=== PATIENT | male | born 1980 | race Caucasian/White ===

== ENCOUNTER 2018-08-20 02:33 | Emergency (ER) | payer SELFPAY ==
[2018-08-20 03:18] VITALS: BP 143/88; PULSE 89; TEMP 98.3; BMI 30.4
[2018-08-20] MEDS ORDERED: KETOROLAC TROMETHAMINE 30 MG/1 ML VIAL IVPUSH ONE (03:26)
[2018-08-20] MEDS ORDERED: SODIUM CHLORIDE 1,000 ML IV STA (03:26)
[2018-08-20] MEDS ORDERED: ONDANSETRON 4 MG/2 ML VIAL IVPUSH ONE (03:26)
[2018-08-20] MEDS ORDERED: ONDANSETRON 4 MG/2 ML VIAL ONE (03:38)
[2018-08-20] MEDS ORDERED: KETOROLAC TROMETHAMINE 30 MG/1 ML VIAL ONE (03:38)
[2018-08-20 03:59] LABS: EPI CELLS 0.3 /HPF (0-5/HPF); HYALINE CASTS 1 /lpf (0-8); URINE APPEARANCE CLEAR; URINE BACTERIA 6.6 /hpf (NEGATIVE); URINE BILIRUBIN NEGATIVE (NEGATIVE); URINE COLOR YELLOW; URINE GLUCOSE (UA) NEGATIVE (NEGATIVE); URINE KETONE TRACE (NEGATIVE); URINE LEUK ESTERASE NEGATIVE (NEGATIVE); URINE NITRITE NEGATIVE (NEGATIVE); URINE PROTEIN NEGATIVE (NEGATIVE); URINE RBC 43 /hpf (0-4); URINE WBC 2 /hpf (0-5)
--- NOTE | 2018-08-20 04:08 | PDOC ---
History of Present Illness - General Chief Complaint: Pain, Acute Stated Complaint: KIDNEY STONE Time Seen by Provider: 08/20/18 03:09 History Source: Patient Exam Limitations: No Limitations - History of Present Illness Travel History: No Initial Comments: 08/20/18 03:26 HISTORY OF PRESENT ILLNESS: 37-year-old male with vague right side pain starting at approximately 5:00 this evening which turned to a sudden onset sharp feeling in his right flank radiating to his right groin starting at approximately 11:00 this evening. Patient does have a history of renal colic requiring stent placement patient states the pain is consistent with his previous renal colic. Patient reports feeling slightly nauseous but has not vomited. He reports urinary hesitancy but denies any urinary frequency or dysuria. He denies fevers or chills. No recent travel or sick contacts. PAST MEDICAL HISTORY: see HPI SURGICAL HISTORY: Denies ALLERGIES: No known drug allergies REVIEW OF SYSTEMS General/Constitutional: Denies fever or chills. Denies weakness, weight change. HEENT: Denies change in vision. Denies ear pain or discharge. Denies sore throat. Cardiovascular: Denies chest pain or shortness of breath. Respiratory: Denies cough, wheezing, or hemoptysis. Gastrointestinal: Denies nausea, vomiting, diarrhea or constipation. Denies rectal bleeding. Genitourinary: see HPI Musculoskeletal: Denies joint or muscle swelling or pain. Denies neck or back pain. Skin and breasts: Denies rash or easy bruising. Neurologic: Denies headache, vertigo, loss of consciousness, or loss of sensation. Psychiatric: Denies depression or anxiety. Endocrine: Denies increased thirst. Denies abnormal weight change. Hematologic/Lymphatic: Denies anemia, easy bleeding, or history of blood clots. Allergic/Immunologic: Denies hives or skin allergy. Denies latex allergy. PHYSICAL EXAM General Appearance: Well-appearing, appropriately dressed. No apparent distress , no intoxication. Respiratory/Chest: Lungs CTAB. No shortness of breath, chest tenderness, respiratory distress, accessory muscle use. No crackles, rales, rhonchi, stridor , wheezing, dullness Cardiovascular: RRR. S1, S2. No JVD, murmur, bradycardia, tachycardia. Gastrointestinal/Abdominal: Normal bowel sounds. Abdomen soft, non-distended. No tenderness or rebound tenderness. No organomegaly, pulsatile mass, guarding, hernia, hepatomegaly, splenomegaly. Musculoskeletal/Extremities: Normal inspection. FROM of all extremities, normal capillary refill. Pelvis Stable. Right CVA tenderness. No tenderness to extremities, pedal edema, swelling, erythema or deformity. Integumentary: Appropriate color, dry, warm. No cyanosis, erythema, jaundice or rash Neurologic: client services associate II-XII intact. Fully oriented, alert. Appropriate mood/affect. Motor strength 5/5. No appreciable EOM palsy, facial droop or sensory deficit. 08/20/18 04:24 Past History - Past Medical History Allergies/Adverse Reactions: Allergies Allergy/AdvReac Type Severity Reaction Status Date / Time No Known Allergies Allergy Verified 08/20/18 03:04 Home Medications: Ambulatory Orders Tamsulosin HCl [Flomax] 0.4 mg PO DAILY #4 capsule 08/20/18 - Suicide/Smoking/Psychosocial Hx Smoking History: Current every day smoker Number of Cigarettes Smoked Daily: 10 Information on smoking cessation initiated: No Hx Alcohol Use: No Drug/Substance Use Hx: No *Physical Exam - Vital Signs Last Vital Signs Temp Pulse Resp BP Pulse Ox 98.3 F 89 20 143/88 98 08/20/18 02:45 08/20/18 02:45 08/20/18 02:45 08/20/18 02:45 08/20/18 02:45 ED Treatment Course - LABORATORY CBC & Chemistry Diagram: 08/20/18 03:58 08/20/18 03:58 Medical Decision Making - Medical Decision Making 08/20/18 04:24 A/P: 37-year-old male with right flank pain radiating to right groin starting this approximately 5 hours ago History of renal colic Stories consistent with recurrent renal colic Labs line urine including culture Toradol 30 mg IV Normal saline 1 L Zofran 4 mg IV now Spiral CT of the abdomen Reassess 08/20/18 05:01 CT scan is read by imaging building performance consultant: There is a 4 mm calculus in the right ureter causing moderate hydronephrosis and hydroureter. No additional stones are findings are seen. Heterogeneously fatty liver. CBC is unremarkable Chemistry notable for BUN-19.6. GFR 95. Urinalysis reveals 2+ blood with 43 negative nitrates, negative leuk esterase, 2 WBCs high-power field. As there is no sign of infection I will discharge the patient home to follow-up with urology as an outpatient. We have a prescription for Flomax to be taken the patient to follow-up with urology. Patient is in agreement with the current plan was satisfied with the care received today. *DC/Admit/Observation/Transfer Diagnosis at time of Disposition: Renal calculus, right - Discharge Dispostion Disposition: HOME Condition at time of disposition: Fair Decision to Admit order: No - Prescriptions Prescriptions: Tamsulosin HCl [Flomax] 0.4 mg PO DAILY #4 capsule - Referrals Referrals: Gerson Reinoso MD [Staff Physician] - - Patient Instructions Additional Instructions: Take Tylenol and Motrin for pain. Follow manufacture's instructions for appropriate dosage. It is safe to take these medications together. Take Flomax or 0.4 mg every day until evaluated by urology. You have been given a referral for a urologist. Call to schedule an appointment for reevaluation. Return to the emergency department for any new or worsening symptoms. Thank you very much for choosing us to provide your emergent health care needs. - Post Discharge Activity
[2018-08-20 04:24] LABS: BASO % 0.4 % (0-2.0); EOS % 0.8 % (0-4.5); HEMATOCRIT 44.5 % (35.4-49); HEMOGLOBIN 15.1 GM/dL (11.7-16.9); LYMPH % 25.4 % (8-40); MCH 32.3 pg (25.7-33.7); MCHC 33.8 g/dl (32.0-35.9); MEAN CELL VOLUME 95.6 fl (80-96); MEAN PLT VOLUME 9.3 fl (7.5-11.1); MONO % 4.3 % (3.8-10.2); NEUT % 69.1 % (42.8-82.8); PLATELET COUNT 208 K/MM3 (134-434); RBC 4.66 M/mm3 (4.00-5.60); RDW 13.3 % (11.9-15.9); WHITE BLOOD COUNT 7.5 K/mm3 (4.0-10.0)
[2018-08-20 04:52] LABS: ALBUMIN 4.1 g/dl (3.4-5.0); BILIRUBIN,TOTAL 0.3 mg/dL (0.2-1); BLOOD UREA NITROGEN 19.6 mg/dL (7-18); CALCIUM 9.1 mg/dL (8.5-10.1); POTASSIUM 4.6 mmol/L (3.5-5.1); TOT PROT 7.8 g/dl (6.4-8.2)
[2018-08-20] MEDS ORDERED: TAMSULOSIN HCL 0.4 MG CAP PO ONE (05:02)
[2018-08-20] MEDS ORDERED: TAMSULOSIN HCL 0.4 MG CAP ONE (05:20)
== END 2018-08-20 05:53 | disposition home or self-care (01) ==
LOC: EDBD 02:33 → JER 02:33
PROC: 3E0337Z Introduction of Electrolytic and Water Balance Substance into Peripheral Vein, Percutaneous Approach (ICD-10-PCS; principal; 2018-08-20)
PROC: 3E033NZ Introduction of Analgesics, Hypnotics, Sedatives into Peripheral Vein, Percutaneous Approach (ICD-10-PCS; 2018-08-20)
PROC: 3E033GC Introduction of Other Therapeutic Substance into Peripheral Vein, Percutaneous Approach (ICD-10-PCS; 2018-08-20)
DX: N13.2 Hydronephrosis with renal and ureteral calculous obstruction (principal); Z87.442 Personal history of urinary calculi
CPT/HCPCS: 36415; 74176-TC; 80053; 81003; 85025; 99282-25; J7030